=== PATIENT | female | born 1965 | race Caucasian/White ===

== ENCOUNTER 2018-12-31 13:59 | Emergency (ER) | payer OTHER ==
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
[2018-12-31] MEDS ORDERED: LET GEL TOPICAL 1 EA SYR TP ONE ×2 (14:51→14:54)
[2018-12-31] MEDS ORDERED: IBUPROFEN 200 MG TAB PO ONE (16:30)
[2018-12-31 16:42] VITALS: BP 106/71
== END 2018-12-31 16:42 | disposition home or self-care (01) ==
LOC: EDUNIT#
DX: S06.0X9A Concussion with loss of consciousness of unspecified duration, initial encounter (principal); S02.2XXA Fracture of nasal bones, initial encounter for closed fracture; S01.511A Laceration without foreign body of lip, initial encounter; S00.81XA Abrasion of other part of head, initial encounter; S40.212A Abrasion of left shoulder, initial encounter; V19.9XXA Pedal cyclist (driver) (passenger) injured in unspecified traffic accident, initial encounter